=== PATIENT | male | born 1995 | race Two or more races ===

== ENCOUNTER 2024-06-18 21:17 | Emergency (ER) | payer MEDICAID, OTHER ==
[~2024-06-18] VITALS: Ht 167.6 cm; Wt 65.8 kg
[2024-06-18 22:56] VITALS: BP 130/70; TEMP 98.6; O2SAT 98
== END 2024-06-18 22:52 | disposition home or self-care (01) ==
LOC: ER 21:19
DX: R56.9 Unspecified convulsions (principal); R42 Dizziness and giddiness; F17.200 Nicotine dependence, unspecified, uncomplicated; Z60.2 Problems related to living alone; Z86.69 Personal history of other diseases of the nervous system and sense organs